=== PATIENT | male | born 1985 | race African-American/Black ===

== ENCOUNTER 2016-07-04 10:10 | Emergency (ER) | payer SELFPAY ==
[~2016-07-04] VITALS: Ht 180.3 cm; Wt 72.6 kg
[2016-07-04 10:17] VITALS: BP 143/92
[2016-07-04] MEDS ORDERED: METH-37 PO (10:59)
[2016-07-04] MEDS ORDERED: TRAM-29 PO (10:59)
--- NOTE | 2016-07-04 10:59 | PHYS DOC ---
Past Medical History Past Medical History: No Pertinent History Past Surgical History: No Surgical History Additional Information: Nonsmoker Alcohol Use: None Drug Use: None Adult General Chief Complaint Chief Complaint: BACK PAIN OR INJURY [facility] HPI Patient is a 31 year old male who presents with diffuse back pain ongoing for many years. Here he states that the pain became worse 3 days ago. He denies any injury to his back previously or recently. Pain occasionally radiates down both legs. He is able to ambulate without difficulty. He denies incontinence of bowel or bladder or saddle anesthesia. He does not have any nausea, vomiting, abdominal pain, or urinary symptoms. He has not taken any medication at home, stating that he does not like to take pills. He does not have a PCP. Review of Systems Review of Systems Constitutional: Denies fever or chills. [] GI: Denies abdominal pain, nausea, vomiting, bloody stools or diarrhea. [] : Denies dysuria, hematuria or urinary frequency. [] Musculoskeletal: Denies joint pain. Reports diffuse back pain. Integument: Denies rash or skin lesions. [] Neurologic: Denies headache, focal weakness or sensory changes. Denies incontinence or saddle anesthesia. All systems reviewed and negative unless otherwise stated in the HPI. Allergies Allergies Allergies Coded Allergies Type Severity Reaction Last Updated Verified No Known Drug Allergies 12/05/14 No Physical Exam Physical Exam Constitutional: Well developed, well nourished, no acute distress, non-toxic appearance. [] HENT: Normocephalic, atraumatic, oropharynx moist. [] Eyes: PERRLA, EOMI, conjunctiva normal, no discharge. [] Neck: Normal range of motion, diffuse midline and bilateral paraspinal muscle tenderness, supple, no stridor. [] Cardiovascular: Heart rate regular rhythm, no murmur. [] Lungs & Thorax: Bilateral breath sounds clear to auscultation without wheezes, rales, or rhonchi. [] Abdomen: Bowel sounds normal, soft, no tenderness, no masses, no pulsatile masses. [] Skin: Warm, dry, no erythema, no rash. [] Back: Diffuse midline and bilateral paraspinal muscle tenderness, no CVA tenderness. [] Extremities: No tenderness, ROM intact, no edema. Distal pulses equal bilaterally. [] Neurologic: Alert and oriented X 3, normal motor function, normal sensory function, no focal deficits noted. [] Psychologic: Affect normal, judgement normal, mood normal. [] Current Patient Data Vital Signs Vital Signs Date Time Temp Pulse Resp B/P Pulse Ox O2 Delivery O2 Flow Rate FiO2 07/04/16 10:17 98.1 55 18 100 Room Air 98.1 EKG EKG [] Radiology/Procedures Radiology/Procedures [] Course & Med Decision Making Course & Med Decision Making Pertinent Labs and Imaging studies reviewed. (See chart for details) Patient is a 31-year-old male presents with atraumatic back pain. On exam, he has tenderness diffusely and there are no neurologic deficits. We discussed imaging today, however it is unlikely that imaging will be abnormal without any history of trauma. I recommended conservative measures including medication, heat, stretching, and massage with follow-up with a PCP if his pain continues. The patient agrees with this plan. He is discharged home in stable condition. Dragon Disclaimer Dragon Disclaimer This electronic medical record was generated, in whole or in part, using a voice recognition dictation system. Departure Departure Impression: Primary Impression: Back pain Disposition: 01 HOME, SELF-CARE Condition: STABLE Referrals: NO PCP (PCP) Patient Instructions: Back Pain, Adult, [id number] Additional Instructions: You were seen today for atraumatic back pain. X-rays were not performed because there was no injury. Please take the prescribed medication for your back pain. Do not drive or operate heavy machinery while taking pain medication or muscle relaxers. Please apply heat, stretch, and massage to help with your back pain. Avoid bending or lifting activities that will worsen your pain. Please follow-up with a primary care provider if your pain continues. Return to emergency department if any new or concerning symptoms. Scripts Methocarbamol (Robaxin)500 Mg [id number] Mg PO QID #20 TAB Prov:EVA BRITTON 07/04/16 Tramadol Hcl (Ultram)50 Mg [id number] Mg PO Q6H PRN PAIN #20 TAB Prov:EVA BRITTON 07/04/16 Problem Qualifiers Primary Impression: Back pain Back pain location: back pain in unspecified location Chronicity: chronic Back pain laterality: unspecified Qualified Code: M54.9 - Dorsalgia, unspecified EVA BRITTON Jul 04, 2016 10:59
== END 2016-07-04 11:05 | disposition home or self-care (01) ==
LOC: ER 10:10
DX: G89.29 Other chronic pain (principal); M54.9 Dorsalgia, unspecified
CPT/HCPCS: 99283

== ENCOUNTER 2016-07-04 14:55 | Emergency (ER) | payer SELFPAY ==
[~2016-07-04] VITALS: Ht 180.3 cm; Wt 72.6 kg
[~2016-07-04 14:55] MED LIST: METH-37 PO; TRAM-29 PO
[2016-07-04 16:30] VITALS: BP 128/61
--- NOTE | 2016-07-04 17:17 | RAD ---
Three-view study of the right hand Indications: Trauma. Impact injury 2 hours ago. Pain in fifth metacarpal area. Findings: There is a comminuted fracture of the proximal epiphysis and metaphysis of the lateral aspect of the fifth metacarpal bone with intra-articular extension into the fifth carpometacarpal joint. There is foreshortening with proximal displacement of the majority of the fifth metacarpal x 5 mm. No osteolytic process is seen. IMPRESSION: Comminuted post traumatic fracture of the proximal fifth metacarpal bone.
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
== END 2016-07-04 17:54 | disposition home or self-care (01) ==
LOC: ER 14:55
DX: S62.316A Displaced fracture of base of fifth metacarpal bone, right hand, initial encounter for closed fracture (principal); W23.0XXA Caught, crushed, jammed, or pinched between moving objects, initial encounter; Y93.89 Activity, other specified; Y99.8 Other external cause status; Y92.89 Other specified places as the place of occurrence of the external cause
CPT/HCPCS: 29125; 73130; 99284-25

== ENCOUNTER 2018-01-20 23:17 | Emergency (ER) | payer SELFPAY ==
[~2018-01-20] VITALS: Ht 180.3 cm; Wt 72.6 kg
[~2018-01-20 23:17] MED LIST changes: -TRAM-29 PO; +TRAM-48 PO
[2018-01-21 02:30] VITALS: BP 112/73
[2018-01-21] MEDS ORDERED: AZITHROMYCIN 250 MG TABLET. PO ONE (02:30)
[2018-01-21] MEDS ORDERED: IBUPROFEN 800 MG TABLET. PO ONE ×2 (02:30→02:33)
[2018-01-21] MEDS ORDERED: AZIT250T6 PO (02:32)
[2018-01-21] MEDS ORDERED: AZITHROMYCIN 250 MG TABLET. ONE (02:32)
[2018-01-21] MEDS ORDERED: HYDR-971 PO (02:32)
[2018-01-21] MEDS ORDERED: IBUP-1060 PO (02:32)
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
== END 2018-01-21 03:01 | disposition home or self-care (01) ==
LOC: ER 23:17
DX: S22.31XA Fracture of one rib, right side, initial encounter for closed fracture (principal); Y04.0XXA Assault by unarmed brawl or fight, initial encounter; Y93.89 Activity, other specified; Y92.89 Other specified places as the place of occurrence of the external cause; Y99.8 Other external cause status
CPT/HCPCS: 99283; Q0144